=== PATIENT | male | born 1970 ===

== ENCOUNTER 2025-01-27 16:43 | Outpatient (CLI) | payer BC, SELFPAY ==
--- NOTE | 2025-01-27 16:45 | CRLHL7_ITS ---
For Patients: As a result of the 21st Century Cures Act, medical imaging exams and procedure reports are released immediately into your electronic medical record. You may view this report before your referring provider. If you have questions, please contact your health care provider. INDICATION: Disorder of right tympanic membrane, rule out cholesteatoma. TECHNIQUE: Temporal bone CT was performed without the administration of intravenous contrast. COMPARISON: : None. FINDINGS: RIGHT TEMPORAL BONE: The auricle and adjacent soft tissues are unremarkable. The external auditory canal is patent without stenosis or obstruction. The tympanic membrane is normal. No abnormal density in the middle ear cavity including the sinus tympani and facial recess. The ossicular chain is intact. The scutum is normal in morphology and Prussak`s space is clear. Trace mastoid effusion. The tegmen tympani and tegmen mastoideum are intact. The otic capsule is normal in density. No abnormality of the cochlea, vestibule, or semicircular canals. The internal auditory canal is normal in caliber and contour. The vestibular aqueduct is normal in size. No abnormality of the facial nerve canal or internal auditory canal. There is thinning/possible dehiscence of the jugular bulb. LEFT TEMPORAL BONE: The auricle and adjacent soft tissues are unremarkable. The external auditory canal is patent without stenosis or obstruction. The tympanic membrane is normal. No abnormal density in the middle ear cavity including the sinus tympani and facial recess. The ossicular chain is intact. The scutum is normal in morphology and Prussak`s space is clear. The mastoid air cells are clear. The tegmen tympani and tegmen mastoideum are intact. The otic capsule is normal in density. No abnormality of the cochlea, vestibule, or semicircular canals. The internal auditory canal is normal in caliber and contour. The vestibular aqueduct is normal in size. No abnormality of the facial nerve canal, internal carotid artery, or jugular bulb. ADDITIONAL FINDINGS: The visualized intracranial structures are within normal limits. No acute orbital pathology. No significant mucosal thickening/secretions in the visualized paranasal sinuses. No acute or aggressive osseous lesions. IMPRESSION: 1. No evidence of cholesteatoma. 2. Trace right mastoid effusion. 3. Thinning/possible dehiscence of the right jugular bulb. Please note that all CT scans at this facility use dose modulation, iterative reconstruction, and/or weight-based dosing when appropriate to reduce radiation dose to as low as reasonably achievable. Dictated by Facundo Grigsby MD @ 01/28/2025 2:05:14 PM (Electronically Signed)
== END 2025-01-27 16:44 | disposition home or self-care (01) ==
LOC: CT 16:43
PROVIDERS: Visit Provider Physician Assistant
DX: H73.91 Unspecified disorder of tympanic membrane, right ear (principal)
CPT/HCPCS: 70480